=== PATIENT | male | born 1940 | race Caucasian/White ===

== ENCOUNTER → 2017-01-23 | Outpatient (CLI) | payer OTHER | LOC: FIMAGING 10:29 | PROVIDERS: ATTEND Internal Medicine | DX: E78.2 Mixed hyperlipidemia (principal); Z82.49 Family history of ischemic heart disease and other diseases of the circulatory system ==

== ENCOUNTER → 2017-06-15 | Outpatient (CLI) | payer OTHER | LOC: FIMAGING 07:31 | PROVIDERS: ATTEND Internal Medicine | DX: J44.9 Chronic obstructive pulmonary disease, unspecified (principal) ==

== ENCOUNTER → 2018-03-16 | Outpatient (CLI) | payer OTHER, MEDICARE | LOC: FIMAGING 08:50 | PROVIDERS: ATTEND Internal Medicine | DX: M51.16 Intervertebral disc disorders with radiculopathy, lumbar region (principal); M51.17 Intervertebral disc disorders with radiculopathy, lumbosacral region; M43.16 Spondylolisthesis, lumbar region; M47.27 Other spondylosis with radiculopathy, lumbosacral region; M41.9 Scoliosis, unspecified ==

== ENCOUNTER 2018-08-01 07:15 | Observation (INO) | payer OTHER, MEDICARE ==
[2018-09-12] MEDS ORDERED: ACETAMINOPHEN 500 MG TAB PO ONE (06:37)
[2018-09-12] MEDS ORDERED: GABAPENTIN 300 MG CAP PO ONE (06:37)
[2018-09-12] MEDS ORDERED: ceFAZolin 2 GM/DEXTROSE 100 ML IV ONE (06:37)
[2018-09-12] MEDS ORDERED: LR 1,000 ML IV ONE (06:38)
[2018-09-12] MEDS ORDERED: BUPIVACAINE/EPI 0.25% 30 ML SDV ONE (06:39)
[2018-09-12] MEDS ORDERED: THROMBIN (BOVINE) 5,000 UNIT VIAL TP ONE (06:39)
[2018-09-12] MEDS ORDERED: DEPO METHYLPREDNISOLONE 40 MG/ML SDV ONE (06:39)
[2018-09-12] MEDS ORDERED: CHLORHEXIDINE GLUC HIBICLENS 118 ML BTL TP ONE (06:39)
[2018-09-12] MEDS ORDERED: BACITRACIN 50,000 UNITS/10 ML SYR IRR ONE (06:40)
--- NOTE | 2018-09-12 07:01 | PDHPUP ---
History & Physical Update H&P update statement: This history and physical update is based on an assessment of the patient which was completed after admission or registration (within 24 hours), but prior to the surgery/procedure. H&P update: H&P reviewed & patient examined, no change in patient's condition since H&P completed
[2018-09-12] MEDS ORDERED: oxyCODONE IR 5 MG TAB PO PRN (07:45)
[2018-09-12] MEDS ORDERED: NS 1,000 ML IV SCH (07:45)
[2018-09-12] MEDS ORDERED: BISACODYL 10 MG SUPP PR PRN (07:45)
[2018-09-12] MEDS ORDERED: HYDROmorphONE/DILAUDID 1 MG/ML INJ IVP PRN (07:45)
[2018-09-12] MEDS ORDERED: ONDANSETRON 4 MG/2 ML VIAL IVP PRN (07:45)
[2018-09-12] MEDS ORDERED: ONDANSETRON DISINTEGRATING 4 MG TAB PO PRN (07:45)
[2018-09-12] MEDS ORDERED: MAGNESIUM HYDROXIDE 30 ML UDCUP PO PRN (07:45)
[2018-09-12] MEDS ORDERED: METHOCARBAMOL 750 MG TAB PO PRN (07:45)
[2018-09-12] MEDS ORDERED: POLYETHYLENE GLYCOL 3350 17 GM PKT PO PRN (07:45)
[2018-09-12] MEDS ORDERED: LACTULOSE 20 GM/30 ML UDCUP PO PRN (07:45)
[2018-09-12] MEDS ORDERED: diphenhydrAMINE 25 MG CAP PO PRN (07:45)
--- NOTE | 2018-09-12 07:54 | PDANEPAE ---
ANE History of Present Illness here for multilevel lumbar fusion for chronic back pain and DJD ANE Past Medical History - Cardiovascular History Hx Hypertension: No Hx Arrhythmias: No Hx Chest Pain: No Hx Coronary Artery / Peripheral Vascular Disease: No Hx CHF / Valvular Disease: No Hx Palpitations: No - Pulmonary History Hx COPD: No Hx Asthma/Reactive Airway Disease: Yes Hx Recent Upper Respiratory Infection: No Hx Oxygen in Use at Home: No Hx Sleep Apnea: No Sleep Apnea Screening Result - Last Documented: Negative Pulmonary History Comment: hx of well controlled asthma - Neurologic History Hx Cerebrovascular Accident: No Hx Seizures: No Hx Dementia: No Neurologic History Comment: scoliosis in spine - Endocrine History Hx Diabetes: No - Renal History Hx Renal Disorders: No - Liver History Hx Hepatic Disorders: No - Neurological & Psychiatric Hx Hx Neurological and Psychiatric Disorders: Yes Neurological / Psychiatric History Comment: pain to left buttock and leg - Cancer History Hx Cancer: No - Congenital Disorder History Hx Congenital Disorders: No - GI History Hx Gastrointestinal Disorders: Yes Gastrointestinal History Comment: reflux,bloating gas - Other Health History Other Health History: prone to constipation;right hip arthritis and pain. 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 RTHA ANE Review of Systems Review of Systems: - Exercise capacity METS (RN): 4 METS ANE Patient History - Allergies Allergies/Adverse Reactions: Penicillins Allergy (Verified 09/05/18 10:29) Wheezing - Home Medications Home Medications: Fluticasone Hfa 110 Mcg [Flovent 110 MCG Hfa MDI (*)] 1 puffs IH BID 08/07/16 [ Last Taken 09/12/18] Aspirin [Aspirin 81mg (*)] 81 mg PO DAILY 08/29/18 [Last Taken 09/05/18] Cholecalciferol Vit D3 [Vitamin D3 (*)] 1,000 units PO DAILY 08/29/18 [Last Taken 09/05/18] - NPO status NPO Since - Liquids (Date): 09/11/18 NPO Since - Liquids (Time): 19:30 NPO Since - Solids (Date): 09/11/18 NPO Since - Solids (Time): 19:45 - Smoking Hx Smoking Status: Never smoked - Family Anes Hx Family Hx Anesthesia Complications: none ANE Labs/Vital Signs - Vital Signs Blood Pressure: 121/71 Heart Rate: 60 Respiratory Rate: 18 O2 Sat (%): 92 Height: 167.64 cm Weight: 58.06 kg ANE Physical Exam - Airway Neck exam: FROM Mallampati Score: Class 2 Mouth exam: normal dental/mouth exam - Pulmonary Pulmonary: no respiratory distress, no rales or rhonchi - Cardiovascular Cardiovascular: regular rate and rhythym, no murmur, rub, or gallop - ASA Status ASA Status: II ANE Anesthesia Plan Anesthesia Plan: general endotracheal anesthesia Total IV Anesthesia: Yes
[2018-09-12] MEDS ORDERED: ROCURONIUM 50 MG/5 ML VIAL ONE (07:59)
[2018-09-12] MEDS ORDERED: LIDOCAINE 2% 5 ML SDV ONE (07:59)
[2018-09-12] MEDS ORDERED: PROPOFOL/EMULSION 500 MG/50 ML BOTTLE IV ONE ×3 (07:59→09:25)
[2018-09-12] MEDS ORDERED: REMIFENTANIL HCL 1 MG VIAL ONE ×2 (07:59→08:13)
[2018-09-12] MEDS ORDERED: fentaNYL 100 MCG/2 ML INJ IVP PRN (10:32)
[2018-09-12] MEDS ORDERED: HYDROmorphONE/DILAUDID 2 MG/ML INJ IVP PRN (10:32)
[2018-09-12] MEDS ORDERED: MEPERIDINE 25 MG/0.5 ML AMP IVP PRN (10:32)
[2018-09-12] MEDS ORDERED: NALOXONE HCL 0.4 MG/ML INJ IVP PRN (10:32)
[2018-09-12] MEDS ORDERED: DIAZEPAM 5 MG/ML 1 ML SYR IVP PRN (10:32)
[2018-09-12] MEDS ORDERED: PROMETHAZINE HCL 25 MG/ML INJ IVP PRN (10:32)
[2018-09-12] MEDS ORDERED: LR 500 ML IV PRN (10:32)
--- NOTE | 2018-09-12 11:23 | POSTOPPROG ---
Post Op Note Date of Operation: 09/12/18 Surgeon: Julio Beltran Chief Of Surgery: BECKA Donis Anesthesiologist: DO Nathalia Anesthesia: GET(General Endotracheal), Local (Specify) Pre-op Diagnosis: lumbar stenosis L4/5 and L5/S1 Post-op Diagnosis: lumbar stenosis L4/5 and L5/S1 Indication: LLE pain Procedure: left L4/5 and L5/S1 lami/decopression Findings: see op note Inf/Abcess present in the surg proc area at time of surgery?: No Depth: Deep Incisional (Fascial) EBL: 50-100 Total fluids administered: see anesthesia record Complications: none
--- NOTE | 2018-09-12 11:26 | SOAPPROG ---
SOAP Progress Note Assessment/Plan: Post Op Visit S: Awake and alert. Pt with expected lower back pain O: AFVSS/PERRLA/EOMI no droop CN 2-12 grossly intact +lt touch 5/5 BUE/BLE = CDI A/P: 78 yo male that is s/p left L4/5 and L5/S1 lami/decompression -orders in place -call with any questions or concerns -pt seen by Dr Beltran -take medications as directed -no bending or twisting Objective: Vital Signs Temp Pulse Resp BP Pulse Ox 36.4 C 60 15 106/66 99 09/12/18 10:58 09/12/18 07:55 09/12/18 11:08 09/12/18 11:08 09/12/18 11:08 ICD10 Worksheet Patient Problems: Problems Problem Status Onset Lumbar radicular pain Acute Lumbar stenosis Acute Primary localized osteoarthritis of right hip Acute - ICD10 Problem Qualifiers (1) Lumbar stenosis Qualifiers: Neurogenic claudication status: with neurogenic claudication Qualified Code (s): M48.062 - Spinal stenosis, lumbar region with neurogenic claudication (2) Lumbar radicular pain
--- NOTE | 2018-09-12 11:57 | GOP ---
DATE OF OPERATION: 09/12/2018 SURGEON: Catrachito Beltran MD NEUROSURGEON: Catrachtio Beltran MD. PERSONNEL DIRECTOR: Cesar Donis PA-C. PREOPERATIVE DIAGNOSIS: Lumbar spondylosis, left lumbosacral radiculopathy. POSTOPERATIVE DIAGNOSIS: Lumbar spondylosis, left lumbosacral radiculopathy. PROCEDURE PERFORMED: Left L4-5, L5-S1 hemilaminotomy, medial facetectomy with a left lateral recess decompression at each level, [id number], [id number], microscope. FINDINGS: ESTIMATED BLOOD LOSS: 20 cc. INDICATIONS: Mr. Hidalgo is an elderly gentleman with terrible pain down the left leg. His MRI demo nstrated degenerative scoliosis with disease at L2-3, 3-4, 4-5, 5-1. He had left lateral recess sten osis both at L4-5 and 5-1 but he also had a very far lateral disk at L4-5. It was unclear to me whet her this far lateral fragment at L4-5 was the issue or not, but he did have left lateral recess steno sis. I thought indeed a lumbar fusion at the best chance of improving his overall symptoms, but I di d not want to consider a fusion at least initially. He had a prior diagnosis of osteopenia, but also a 2-level fusion would assume grow into a 3 or 4 level fusion for him. I thought a simple decompres cortez alone had a reasonable chance of success. He knew that it might not work and that he may requir e additional surgery and he accepted those risks. Risk of CSF leak, nerve injury, spinal fluid leaka ge, continued symptoms was discussed. He knew surgery may fail to allow improvement. DESCRIPTION OF PROCEDURE: Patient was taken to the operating room, placed in supine position. Gener al anesthesia was begun. The patient was flipped prone on the Shakeel frame. Care was taken to pad a ll points of contact. His back was sterilely prepped and draped in usual fashion. We made a localiz ing x-ray and then made a midline incision that was about 2 cm in length. The subcutaneous tissue wa s dissected using Bovie cautery down through the fascia and a subperiosteal dissection was made down the left L4-5 and L5-S1 lamina. A self-retaining retractor was placed. The operating microscope was introduced. We drilled a left L5-S1 and a left L4-5 hemilaminotomy, medial facetectomy. We preserv ed the IAP of L4 and the IAP of L5. We did not destabilize the facet joints at L4-5, 5-1. We opened the ligamentum flavum and on the microscope, we decompressed the left lateral recess of the spinal c anal at L5-S1. There was very severe stenosis. We even performed a far lateral foraminotomy with th e curved Kerrison and got a great decompression of the exiting L5 nerve root which was identified and decompressed as well as the traversing S1 root. We then went to the L4-5 level where we drilled a l eft L4-5 hemilaminotomy, opened ligamentum flavum and decompressed the left lateral recess. There wa s greater left lateral recess stenosis at L4-5 than 5-1. We performed a great decompression flush wi th the L5 pedicle. Here we identified the exiting L4 root and went with a ball-tip probe out in the neural foramina and there was a free disk fragment located out on the foramen on the MRI, but I could not really locate this with the ball-tip probe through the medial approach that we had chosen. We w ere able to pass the ball-tip probe out through the neural foramen on the left side at L4-5 and I fel t that the L4 root was nicely decompressed. We pushed on the L4-5 disk in an effort to try to palpat e this far lateral fragment again and there was just a great decompression. I was not impressed with any additional compression of the exiting L4 root. I knew, however, that there could be a fragment out beyond my reach with a ball-tip probe and I later discussed this with the . We irrigated wit h antibiotic saline solution. We shot a final x-ray and we had performed medial facetectomies and pe rformed lateral recess decompressions at each level. We then placed some Depo-Medrol with Marcaine o randy the roots at L4-5, 5-1 and then closed the incision in multiple layers using Vicryl sutures. A r unning PDS was placed in the skin itself. There were no complications. COMPLICATIONS: None. /[id number]/MODL
[2018-09-12] MEDS: FLUTICASONE HFA 110 MCG MDI IH SCH ×2 (12:07→20:49)
[2018-09-12] MEDS: CHOLECALCIFEROL VIT D3 1,000 UNITS TAB PO SCH (13:58)
[2018-09-12] MEDS: FAMOTIDINE 20 MG TAB PO SCH ×2 (13:58→20:48)
[2018-09-12] MEDS: SENNOSIDES/DOCUSATE SODIUM TAB PO SCH ×2 (14:01→20:48)
[2018-09-12] MEDS: ACETAMINOPHEN 500 MG TAB PO SCH ×2 (14:44→20:48)
[2018-09-12] MEDS: GABAPENTIN 300 MG CAP PO SCH ×2 (14:46→20:48)
[2018-09-12] MEDS ORDERED: ceFAZolin 2 GM/DEXTROSE 100 ML IV SCH ×2 (15:00→23:00)
--- NOTE | 2018-09-12 16:13 | POSTANESTH ---
Post Anesthetic Evaluation Cardiovascular Status: Normal, Stable Respiratory Status: Normal, Stable Level of Consciousness/Mental Status: Can Participate in Eval, Mildly Sleepy, Arousable Pain Control: Adequate, Prn Tx Ordered Nausea/Vomiting Control: Adequate, Prn Tx Ordered Complications Possibly Related to Anesthesia: None Noted
[2018-09-13] MEDS: GABAPENTIN 300 MG CAP PO SCH (05:53)
[2018-09-13] MEDS: ACETAMINOPHEN 500 MG TAB PO SCH (05:55)
--- NOTE | 2018-09-13 07:15 | NEUSURGPN ---
Date of Surgery: 09/12/18 Post Op Day: 1 Assessment/Plan: Assessment: 78 yo male that is s/p left L4/5 and L5/S1 lami/decompression POD #1 Plan: -s/p L4/5 and L5/S1 lami/decompression-legs feel better -PT/OT pending this am -if passes services we will dc home today-dc pended and ARAMIS Nayak will dc when criteria is met -call with any questions or concerns -orders in place -pt seen by Dr Beltran -take medications as directed -no bending or twisting -pt and understand and agree Subjective: Awake and alert. NAD. Eating/drinking and voiding. No f/c/n/v/d. No gamino/neck/ chest/abd or gu complaints. Objective: AFVSS/PERRLA/EOMI no droop CN 2-12 grossly intact +lt touch 5/5 BUE/BLE = CDI Neuro Check Frequency: per routine Urinary Catheter in Place: No - Physician Discussed Patient with Dr.: Devin Patient Seen by : Devin Neurosurgery Physical Exam - Vitals, I&O, Labs I and O 09/12/18 09/13/18 09/14/18 05:59 05:59 05:59 Intake Total 3040 Output Total 1250 Balance 1790 Weight 58.06 kg Intake: Oral (ml) 815 IV Intake (ml) 1550 IV Infused (ml) 675 Ns 1,000 ml @ 75 mls/hr 675 IV CONT EULOGIO Rx#: [id number] Output: Urine (ml) 1100 Toilet 1100 Estimated Blood Loss (ml) 150 Other: Intake Quantity Yes Sufficient Number of Voids Toilet 1 Vital Signs Temp Pulse Resp BP Pulse Ox 36.6 C 59 L 17 102/63 92 09/13/18 04:00 09/13/18 04:00 09/13/18 04:00 09/13/18 04:00 09/13/18 04:00 ICD10 Worksheet Patient Problems: Problems Problem Status Onset Lumbar radicular pain Acute Lumbar stenosis Acute Primary localized osteoarthritis of right hip Acute - ICD10 Problem Qualifiers (1) Lumbar stenosis Qualifiers: Neurogenic claudication status: with neurogenic claudication Qualified Code (s): M48.062 - Spinal stenosis, lumbar region with neurogenic claudication (2) Lumbar radicular pain
[2018-09-13 07:20] VITALS: BP 112/63
[2018-09-13] MEDS: FLUTICASONE HFA 110 MCG MDI IH SCH (08:08)
[2018-09-13] MEDS: SENNOSIDES/DOCUSATE SODIUM TAB PO SCH (09:40)
[2018-09-13] MEDS: FAMOTIDINE 20 MG TAB PO SCH (09:40)
[2018-09-13] MEDS: CHOLECALCIFEROL VIT D3 1,000 UNITS TAB PO SCH (09:40)
--- NOTE | 2018-09-13 11:04 | ASMTLACE ---
SELENAE Length of stay for Answers: 2 days current admission Acuity / Level of Answers: No Care: Did the patient have an inpatient admission? Comorbidities - select Answers: Opioid dependence all that apply / Chronic pain # of Emergency department Answers: 0 visits in the last 6 months Score: 6 Date Signed: 09/13/2018 11:03 AM Electronically Signed By:JONNIE Porter
--- NOTE | 2018-09-13 11:05 | ASMTCMCOM ---
CM Note CM Note Notes: Pt medically stable for d/c. PT rec home/outpatient. No CM d/c needs identified. Date Signed: 09/13/2018 11:05 AM Electronically Signed By:JONNIE Porter
[2018-09-15] MEDS ORDERED: ENOXAPARIN 40 MG/0.4 ML SYR SC SCH (09:00)
== END 2018-09-13 10:52 | disposition home or self-care (01) ==
LOC: F3N 09-12 06:18
PROVIDERS: ADMIT Internal Medicine; ATTEND Neurological Surgery
PROC: 00NY0ZZ Release Lumbar Spinal Cord, Open Approach (ICD-10-PCS; principal; 2018-09-12 08:15)
PROC: 4A1004G Monitoring of Central Nervous Electrical Activity, Intraoperative, Open Approach (ICD-10-PCS; principal; 2018-09-12 08:15)
PROC: 01N90ZZ Release Lumbar Plexus, Open Approach (ICD-10-PCS; principal; 2018-09-12 08:15)
DX: M51.17 Intervertebral disc disorders with radiculopathy, lumbosacral region (principal); M47.27 Other spondylosis with radiculopathy, lumbosacral region; J45.909 Unspecified asthma, uncomplicated
CPT/HCPCS: 63047; 63048; 97161; 97165; J0690; J1030; J2704